=== PATIENT | male | born 1960 | race Caucasian/White ===

== ENCOUNTER 2022-10-27 08:09 | Observation (INO) ==
[~2022-10-27 08:09] MED LIST: Buffered Lidocaine 1% SYRIN 1 ml INTRADERM ONE; Lactated Ringers 1000 ml BAG 1,000 ML IV SCH
[2022-10-27] MEDS ORDERED: ceFAZolin 2 GM in NS PREMIX 2 GM/100 ML BAG IVPB ONE (09:40)
[2022-10-27] MEDS ORDERED: Midazolam 2 mg/2 ml VIAL 1 mg/ml 2 ml VIAL (2 mg) ONE ×2 (10:52→13:24)
[2022-10-27] MEDS ORDERED: Lidocaine 2% PF 5 ML VIAL ONE (10:54)
[2022-10-27] MEDS ORDERED: Propofol 10 MG/ML 20 ML BTL ONE ×3 (12:04→15:42)
[2022-10-27] MEDS ORDERED: ROPIVACAINE 5 MG/ML 30 ML BTL (0.5%) ONE (13:02)
[2022-10-27] MEDS ORDERED: Magnesium Hydroxide LIQ 30 ML UDC PO PRN (13:20)
[2022-10-27] MEDS ORDERED: Lactulose 30 ml UDC PO PRN (13:20)
[2022-10-27] MEDS ORDERED: Ondansetron ODT 4 mg TAB 4 MG TAB PO PRN (13:20)
[2022-10-27] MEDS ORDERED: Ondansetron 4 mg VIAL 2 MG/ML 2 ml VIAL IV PRN ×2 (13:20→16:11)
[2022-10-27] MEDS ORDERED: Lactated Ringers 1000 ml BAG 1,000 ML IV SCH (14:00)
[2022-10-27] MEDS ORDERED: Glycopyrrolate IV 0.2 MG/ML 1 ML VIAL ONE (14:03)
[2022-10-27] MEDS ORDERED: Dexamethasone IV 4 MG/ML VIAL 1 ml VIAL ONE (14:32)
[2022-10-27] MEDS ORDERED: Ondansetron 4 mg VIAL 2 MG/ML 2 ml VIAL ONE ×2 (14:32→16:47)
[2022-10-27] MEDS ORDERED: Phenylephrine IV 10 MG/ML 1 ml VIAL ONE (14:40)
[2022-10-27] MEDS ORDERED: Naloxone 0.4 mg VIAL 0.4 mg/ml 1 ml VIAL IV PRN (16:11)
[2022-10-27] MEDS ORDERED: fentaNYL 100 mcg/2 ml 50 MCG/ML VIAL IV PRN (16:11)
[2022-10-27] MEDS ORDERED: fentaNYL 100 mcg/2 ml 50 MCG/ML VIAL ONE (17:39)
[2022-10-27 19:31] LABS: ABS Lymphocytes 0.6 10^3/ul (1.0-4.8); ABS Monocytes 0.4 10^3/ul (0-0.8); ABS Neutrophils 10.7 10^3/ul (1.5-7.7); Eosinophil % 0.1 %; Hematocrit 37 % (42-52); Hemoglobin 12.1 g/dL (14.0-18.0); Lymphocyte % 5.2 %; Mean Corpuscular HGB Conc 33 g/dL (31-36); Mean Corpuscular Hemoglobin 31 pg (27-31); Mean Corpuscular Volume 94 fL (80-94); Mean Platelet Volume 7.8 fL (7.4-10.4); Platelet Count 130 10^3/uL (150-450); Red Blood Count 3.92 10^6 /uL (4.18-5.48); Red Cell Distribution Width 14 % (10-15); White Blood Count 11.7 10^3/uL (3.5-10.8)
[2022-10-27] MEDS: Magnesium Hydroxide LIQ 30 ML UDC PO SCH (20:52)
[2022-10-27] MEDS: ceFAZolin 1 GM ADVAN 1 GM in NS 0.9% 50 ML 50 ML IVPB SCH (21:29)
[2022-10-28] MEDS: ceFAZolin 1 GM ADVAN 1 GM in NS 0.9% 50 ML 50 ML IVPB SCH ×2 (05:30→13:35)
[2022-10-28 06:33] LABS: Hematocrit 32 % (42-52); Mean Platelet Volume 7.9 fL (7.4-10.4); Platelet Count 127 10^3/uL (150-450)
[2022-10-28 06:46] LABS: Calcium 7.9 mg/dL (8.6-10.3); Creatinine, Serum 0.96 mg/dL (0.67-1.17); Potassium 4.6 mmol/L (3.5-5.0); eGFR CKD-EPI 89.9 (>60)
[2022-10-28] MEDS: Cholecalciferol (VIT D3) 400 units TAB PO SCH (08:03)
[2022-10-28] MEDS: Vitamin THERAPEUTIC TAB PO SCH (08:04)
[2022-10-28] MEDS: Magnesium Hydroxide LIQ 30 ML UDC PO SCH ×2 (08:05→20:59)
[2022-10-28] MEDS: CMCS: Riboflavin (B2) 100 mg TAB(NF) PO SCH (13:35)
[2022-10-28] MEDS: Enoxaparin 40 MG/0.4 ML SYR SUBCUT SCH (13:37)
[2022-10-29 06:49] LABS: Hematocrit 28 % (42-52); Hemoglobin 9.6 g/dL (14.0-18.0); Mean Platelet Volume 7.8 fL (7.4-10.4); Platelet Count 101 10^3/uL (150-450)
[2022-10-29] MEDS: Cholecalciferol (VIT D3) 400 units TAB PO SCH (08:06)
[2022-10-29] MEDS: Magnesium Hydroxide LIQ 30 ML UDC PO SCH (08:06)
[2022-10-29] MEDS: Vitamin THERAPEUTIC TAB PO SCH (08:06)
[2022-10-29] MEDS: CMCS: Riboflavin (B2) 100 mg TAB(NF) PO SCH (08:06)
[2022-10-29 12:26] VITALS: BP 119/73
[2022-10-29] MEDS: Enoxaparin 40 MG/0.4 ML SYR SUBCUT SCH (13:22)
== END 2022-10-29 13:50 | disposition home or self-care (01) ==
LOC: AA 08:09 → INTOOBSV 08:09 → SSU 18:26
PROVIDERS: ADMIT Orthopaedic Surgery Adult Reconstructive Orthopaedic Surgery; ATTEND Orthopaedic Surgery Adult Reconstructive Orthopaedic Surgery